=== PATIENT | female | born 1965 | race Caucasian/White ===

== ENCOUNTER 2016-11-10 05:23 | Day surgery (SDC) | payer OTHER ==
[~2016-11-10] VITALS: Ht 154.9 cm; Wt 79.3 kg
[~2016-11-10 05:23] MED LIST: ASPI-973 PO; METO25TA6 PO; NITR0.4T6 SL; OMEP40CA36 PO; SIMV20TA4 PO; VENL75CA PO
[2016-11-10] MEDS ORDERED: fentaNYL-PF 50 mCg/mL 2 mL Inj ONE (05:24)
[2016-11-10] MEDS ORDERED: Ondansetron 2 mg/mL 2 mL Inj ONE (05:24)
[2016-11-10] MEDS ORDERED: Propofol 10,000 mCg/mL 20 mL Inj ONE (05:24)
[2016-11-10] MEDS: Lactated Ringer's 1,000 ML IV SCH ×2 (05:28→07:09)
[2016-11-10] MEDS ORDERED: CeFAZolin 2 Gm/50 mL D5W Duplex Bag IV ONE (05:30)
[2016-11-10 05:52] VITALS: BP 148/82; PULSE 71; RESP 16; O2SAT 98
--- NOTE | 2016-11-10 06:46 | PCM.HPANE ---
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 Ht/WT & BMI Height (Feet): 5 Height (Inches): 1.00 Weight (Kilograms): 79.3 Body Mass Index 33.00 Allergies Coded Allergies: No Known Allergies (Unverified , 11/03/16) Past Anesthesia History Anesthesia History: Denies:: Abnormal Airway, Anesthesia Reactions (difficulty being sedated for colonoscopy), Difficult Intubation, Fam Anesthesia Reaction Diabetes History Hx Diabetes?: No Type of Diabetes: Diet Controlled MRSA MRSA: No Medications Blood Thinner: Aspirin Hypertension Medication: Yes Home Meds Incl Beta Nishi: Yes (Metoprolol 12.5mg) Date Beta Nishi Taken: Nov 10, 2016 Time Beta Nishi Taken: 329 Active Scripts oxyCODONE 5 Mg/5 Ml Solution5 Mg PO Q4H PRN For Pain #90 ML Ref 1 Prov:Coretta Gonzales DPM 11/10/16 Reported Medications Nitroglycerin SL 0.4 Mg Tab.subl0.4 Mg SL PRN esophageal spasm 11/03/16 Omeprazole 40 Mg Capsule.dr40 Mg PO DAILY Ref 0 11/03/16 Simvastatin 20 Mg Iulbtq38 Mg PO HS Ref 0 11/03/16 Metoprolol Tartrate 25 Mg Unllzg75.5 Mg PO BID 30 Days Ref 0 11/03/16 Venlafaxine ER (Effexor XR)75 Mg Vbadqqe37 Mg PO DAILY Ref 0 11/03/16 Aspirin 81 Mg Meswwc85 Mg PO DAILY Ref 0 11/03/16 History History of ENT Problems?: Yes HEENT History: Positive for:: Sinus Problem Denies:: Abnormal Airway Cataracts Difficult Intubation Dysphagia Glaucoma Hearing Problem TMJ Denture Type: None Teeth Condition: Within Normal Limits Hx of Heart Problems?: Yes Cardiovascular History: Positive for:: Hypertension Denies:: AICD Abdominal Aortic Aneurism Atrial Fibrillation Cardiac Surgery Chest Pain Congestive Heart Failure Coronary Artery Disease Edema Heart Murmur Irregular Heartbeat Pacemaker Peripheral Vascular Rheumatic Fever Thrombophlebitis Valvular Heart Disease Hx of Respiratory Problem?: No Respiratory History: Denies:: Asthma COPD Emphysema Oxygen Administration Pneumonia Tuberculosis Use of C-PAP Machine Hx Neurologic Problems?: No Neurological History: Denies:: Alzheimer's Disease CVA Dizziness Headaches Multiple Sclerosis Parkinson's Disease Seizures TIA Hx of GI Problems?: Yes Hx of Problems?: Yes Female Hx: Denies:: Currently Problems with Breasts? Skin History: Denies:: History Skin Disorders? Pressure Ulcers Hx Musculoskeletal Problems?: Yes Musculoskeletal History: Positive for:: Musculoskeletal Trauma (left foot neuroma current admission procedure) Denies:: Back Injury Degenerative Joint Fibromyalgia Joint Replacement Myasthenia Gravis Osteoarthritis Rheumatoid Arthritis Systemic Lupus Hx of Psycho/Social Problems?: Yes Psycho Social History: Positive for:: Anxiety (panic attacks ( not for years)) Denies:: Hx Depression Hx Surgeries?: Yes (brigitte, bladder sling) Hx Any Other Health Problems?: Yes Other History: Denies:: Cancer Thyroid Disease History Blood Transfusions: Positive for:: Accept Blood Products? Denies:: Blood Transfusions Hx Diabetes: No Hx Alcohol Use: YesAlcoholic Drinks Per Day: 2-3 drinks monthlyHx Substance Use: NoHave You Smoked inLast 12 mo: Yes (one half pack or less daily) Stop/Bang S-Snoring: Do You Snore Loudly: No T-Tired: feel tired, fatigued: No O-Obsered: Observed not breath: No P-Blood Pressure: treated: Yes B- Body Mass Index > 35 kg/m2: No A- Age over 50: Yes N- Neck Large Circumference: No G- Gender Male: No WILBERT Total Score: 2 Risk Assessment Category Category 1A: Patient has history of documented sleep apnea, and HAS NOT received any narcotic, sedative or anesthesia administration during this stay. Category 1B: Patient has history of documented sleep apnea, and HAS received any narcotic , sedative or anesthesia administration during this stay Category 2: Patient has SUSPECTED Obstructive Sleep Apnea, and HAS received any narcotic , sedative or anesthesia administration during this stay. Category 3: Patient has SUSPECTED Obstructive Sleep Apnea and HAS NOT received narcotic, sedative or anesthesia administration during this stay. Category 4: Outpatient in Procedural Areas with known sleep apnea or who screen positive for High Risk via the STOP/BANG questionnaire. Exam Exam Vital Signs Vital Signs Date Time Temp Pulse Resp B/P Pulse Ox O2 Delivery O2 Flow Rate FiO2 11/10/16 05:52 36.3 71 16 148/82 98 Room Air General Appearance: Alert, Oriented X3, Cooperative, Moderate Distress HEENT/AIRWAY: MP 2, Neck Movement (from), Mouth Opening (wnl, blood blister on lower lip) Lungs: Clear to Auscultation Heart: Exam Unremarkable Meds/Labs/Diagnostics Admission Meds Current Medications Lactated Ringer's (Lr) 1,000 ml @ 120 mls/hr Q8H20M IV Last administered on t 05:28; Start 11/10/16 at 05:00; Stop 11/10/16 at 13:19 Plan Impression Patient chart reviewed, patient interviewed and anesthestic plan with risks, benefits, and alternatives discussed, and informed consent obtained. ASA Physical Status: ASA2 Mod Systemic Disease Anesthetic Plan: MAC Bene/Risks/Altern/Consents: Yes HP Complete Prior to Induction: Yes Other patient expressed concern over waking up during procedure as happened during her colonoscopy. Explained that while this was not a general anesthetic and waking up is a possiblity that she would not feel any pain. Questions answered. Raymundo Piedra MD Nov 10, 2016 06:46
[2016-11-10] MEDS: CeFAZolin Inj 2 GM in IV Premix 1 EACH IV ONE ×2 (07:09→07:40)
[2016-11-10] MEDS ORDERED: OXYC5SOL11 PO (07:12)
[2016-11-10] MEDS ORDERED: Lidocaine 2%-Epi 1:100,000 20 mL Inj INFILTRATE ONE (07:16)
[2016-11-10] MEDS ORDERED: Dexamethasone 4 mg/mL Inj INTRARTICU ONE (07:58)
[2016-11-10] MEDS ORDERED: Lactated Ringer's 500 ML IV PRN (07:59)
[2016-11-10] MEDS ORDERED: Lactated Ringer's 1,000 ML IV SCH (07:59)
[2016-11-10] MEDS ORDERED: fentaNYL-PF 50 mCg/mL 2 mL Inj IVPUSH PRN (08:00)
[2016-11-10] MEDS ORDERED: Dexamethasone 4 mg/mL Inj IVPUSH PRN (08:00)
[2016-11-10] MEDS ORDERED: EPHEDrine Sulfate 50 mg/mL Inj IVPUSH PRN (08:00)
[2016-11-10] MEDS ORDERED: hydrALAZINE 20 mg/mL Inj IVPUSH PRN (08:00)
[2016-11-10] MEDS ORDERED: Atropine 0.4 mg/mL Inj IVPUSH PRN (08:00)
[2016-11-10] MEDS ORDERED: HYDROmorphone 1 mg/mL Inj IVPUSH PRN (08:00)
[2016-11-10] MEDS ORDERED: Labetalol 5 mg/mL 20 mL Inj IV PRN (08:00)
[2016-11-10] MEDS ORDERED: Phenylephrine 10,000 mCg/mL Inj IVPUSH PRN (08:00)
[2016-11-10] MEDS ORDERED: Ondansetron 2 mg/mL 2 mL Inj IVPUSH PRN (08:00)
[2016-11-10 08:40] VITALS: BP 118/70; PULSE 75; RESP 16; O2SAT 93
[2016-11-10] MEDS ORDERED: oxyCODONE 1 mg/mL 5 mL Liquid PO PRN (09:05)
--- NOTE | 2016-11-10 09:10 | PCM.PODPO ---
Podiatry Operative Report Date of Service: Nov 10, 2016 Date of Service Nov 10, 2016 Pre Operative Diagnosis Left second intermetatarsal neuroma Post Operative Diagnosis Left second intermetatarsal neuroma Procedure Excision of Left second intermetatarsal neuroma and adjacent bursa Surgeon Surgeon: Coretta Gonzales DPM Assistants: None Indication for Procedure Pain in the plantar aspect of the left foot, interfering with ambulation. Findings A large bursa subsecond metatarsal head, extending into the second intermetatarsal space, connected to the dermal layer and the second intermetatarsal nerve. Details of Procedure The patient was identified in the preoperative holding area and brought back to the operating room. She was placed on the operating table in supine position. The timeout protocol was completed in the patient's name and site of surgery confirmed. Her left foot was injected with 2% lidocaine with epinephrine in the second intermetatarsal space. The left foot was prepped and draped in usual aseptic manner. A plantar incision was made in the second intermetatarsal area from the sulcus of the second toe to the level of the metatarsal heads. Skin lines were followed. The subcutaneous fat was bluntly dissected down to the easily identifiable common digital nerve. The 2 branches to the second and third toes were clamped and cut back to the common digital nerve. The entire course of the nerve in this area had not additional branches associated with the adjacent bursa. Once the nerve was excised, the stump of the nerve was injected with 2 mg of dexamethasone. The adjacent bursa was then strategically excised from the surrounding fat pad. Afterwards, the palpable previous mass was definitely no longer present. The area in the third metatarsal phalangeal sulcus was explored, but no additional bursal tissue found. The wound was irrigated with normal saline, closed with 4-0 Vicryl and 3 -0 Prolene. The dressing consisted of Hayden silk, 4 x 4 gauze, Kerlix, and Coban. The patient tolerated it well. She was weaned off of general anesthesia and taken to the recovery room with vital signs stable and the vascular status to the left foot intact. Grafts, Implants: None Complications There were no periprocedural complications identified. Condition Stable Anesthetic Administered: MAC Drains: None Catheters: None Output, Estimated Blood Loss: 5 (ml) Blood Admin during surgery: No Surgical Cast or Splint: Post-op Boot Surgical Specimen Removed: Yes Specimen sent to Pathology: Yes Surgical Specimen description: Nerve and bursa, left foot Post Operative Plan The patient will be weightbearing as tolerated in a modified postoperative shoe with a cut out in the area of the incision. The dressing is to remain clean and dry until her follow-up visit in 1 week. She requested liquid oxycodone for postoperative pain, which was prescribed. Coretta Gonzales DPM Nov 10, 2016 09:10
--- NOTE | 2016-11-10 09:40 | PCM.ANEP1 ---
Post Anesthesia PACU Phase 1 Assessment Vital Signs Vital Signs Date Time Temp Pulse Resp B/P Pulse Ox O2 Delivery O2 Flow Rate FiO2 11/10/16 08:40 75 16 118/70 93 Room Air 11/10/16 05:52 36.3 71 16 148/82 98 Room Air Anesthetic Administered: MAC Level of Alertness: Awake, talking DELACRUZ's with Equal Strength: Yes Pain: No Nausea or Vomiting: No CV Function & Hydration Stable: Yes Airway Device: Oxygen Delivery: Room Air Lungs: Normal Air Movement PACU Phase 2 Assessment Complications: No Follow up Care: No Patient Instructions Provided: N/A Raymundo Piedra MD Nov 10, 2016 09:40
[2016-11-10 09:48] VITALS: BP 121/63; PULSE 71; RESP 17; O2SAT 95
--- NOTE | 2016-11-12 15:57 | PATH ---
SURGICAL PATHOLOGY Attending Physician:Coretta Gonzales CASE STATUS: Signed Out PATIENT NAME: LUIS ANGEL CARNES PID: [id number] : 1965 DATE COLLECTED:11/10/2016 21:15 SPECIMEN: Nerve, Biopsy CLINICAL HISTORY: LEFT FOOT NEUROMA 1). LEFT FOOT NERVE FINAL DIAGNOSIS: 1.LEFT FOOT NERVE, EXCISION: CONSISTENT WITH NEUROMA. ICD10 G57.92 GROSS DESCRIPTION: The specimen is received in one formalin filled container labeled with the patient's name, sublabeled "left foot nerve" and consists of 2 light yellow ivey portions of soft tissue which aggregate to 1.1 x 0.8 x 0.5 CM. The specimen is sectioned into multiple pieces and entirely submitted in 2 cassettes. 11/10/2016GA MICRO DESCRIPTION: See diagnosis. ICD-9 CODES: CPT CODES: 1: 12312 Electronically Signed Out Ronak Blanco MD, Ph.D. [facility] Pathology [facility] [address], [place] [address] Technical component performed at [facility], [address] [place] [address] Ave[address], [place], [address]
== END 2016-11-10 23:59 | disposition home or self-care (01) ==
LOC: SAS 05:23
PROVIDERS: ATTEND Podiatrist
DX: G57.62 Lesion of plantar nerve, left lower limb (principal); I10 Essential (primary) hypertension; J45.909 Unspecified asthma, uncomplicated; F41.9 Anxiety disorder, unspecified; F17.210 Nicotine dependence, cigarettes, uncomplicated; Z79.899 Other long term (current) drug therapy; Z79.82 Long term (current) use of aspirin
CPT/HCPCS: 28080; J0690; J1100; J2250; J2405; J2704; J3010; J7120